=== PATIENT | female | born 1975 | race African-American/Black ===

== ENCOUNTER 2018-09-24 14:57 | Inpatient (IN) ==
[2018-09-24] MEDS ORDERED: DULCOLAX PR PRN (16:29)
[2018-09-24] MEDS ORDERED: MOTRIN PO PRN (16:29)
[2018-09-24] MEDS ORDERED: NICOTINE GUM BUCCAL PRN (16:29)
[2018-09-24] MEDS ORDERED: TUBERSOL ID ONE (16:29)
[2018-09-24] MEDS ORDERED: D5W 1,000 ML IV PRN (16:29)
[2018-09-24] MEDS ORDERED: ZOFRAN IV PRN (16:29)
[2018-09-24] MEDS ORDERED: PHENOBARBITAL IV PRN (16:29)
[2018-09-24] MEDS ORDERED: NICODERM PATCH TD PRN (16:29)
[2018-09-24] MEDS ORDERED: IMODIUM PO PRN ×2 (16:29)
[2018-09-24] MEDS ORDERED: ZOFRAN ODT PO PRN (16:29)
[2018-09-24] MEDS ORDERED: SENOKOT PO PRN (16:29)
[2018-09-24] MEDS ORDERED: ZOFRAN IM PRN (16:29)
[2018-09-24] MEDS ORDERED: MAALOX PLUS LIQUID PO PRN (16:29)
[2018-09-24 17:25] LABS: AMYLASE 63 U/L (20-200); LIPASE 28 U/L (13-60)
[2018-09-24] MEDS ORDERED: BENTYL PO PRN (17:38)
[2018-09-24] MEDS ORDERED: SINEMET 25/100 PO PRN (17:38)
[2018-09-24] MEDS: SUBOXONE 2 MG/0.5 MG FILM SL SCH (18:06)
[2018-09-24 18:51] LABS: UR AMPHETAMINES QUAL NONE DETECTED (NONE DETECT); UR BARBITUATES QUAL NONE DETECTED (NONE DETECT); UR BENZODIAZEPIN QUAL NONE DETECTED (NONE DETECT); UR CANNABINOIDS QUAL NONE DETECTED (NONE DETECT); UR COCAINE QUAL NONE DETECTED (NONE DETECT); UR METHADONE QUAL NONE DETECTED (NONE DETECT); UR METHAMPHETAMINE QUAL NONE DETECTED (NONE DETECT); UR OPIATES QUAL PRESUMPTIVE POSITIVE (NONE DETECT); UR OXYCODONE QUAL NONE DETECTED (NONE DETECT); UR PCP QUAL NONE DETECTED (NONE DETECT); UR PROPOXYPHENE QUAL NONE DETECTED (NONE DETECT); UR TCA QUAL NONE DETECTED (NONE DETECT)
[2018-09-24] MEDS: ATARAX PO PRN (21:59)
[2018-09-24] MEDS: SEROQUEL PO PRN (21:59)
[2018-09-25] MEDS: LIBRIUM PO PRN ×3 (02:05→21:16)
--- NOTE | 2018-09-25 04:59 | HISTORY AND PHYSICAL ---
CHIEF COMPLAINT: Nausea, vomiting. HISTORY OF PRESENT ILLNESS: Patient is a 43-year-old female who notes that she has been abusing opiates up to 10 pills a day. She has been having nausea, vomiting, abdominal pain, and myalgias since attempting to stop. SOCIAL HISTORY: Patient is . She works at [employer]. Lives at home in [place]. PAST MEDICAL HISTORY: Hypertension, high cholesterol, B12 deficiency, migraines, chronic anxiety, depression. MEDICATIONS: The patient takes B12 on a regular basis. Takes prescription for blood pressure but she is unsure of what. Takes Excedrin for her migraines. ALLERGIES: No known drug allergies. REVIEW OF SYSTEMS: CINA score 16 secondary to nausea, occasional vomiting, abdominal pain, visible sweating, mild tremors. Denies any fevers or chills. She denies any dysuria or urinary frequency. Denies hesitancy, polyuria. Denies constipation, melena, hematochezia. SUBSTANCE ABUSE HISTORY: The patient has never been in treatment facility in the past. States that substance abuse has caused financial and work problems. She states she is tired of the lifestyle and wants to get her life back before pain pills destroy it. She started Klonopin at age 32, currently uses occasionally. Started opiates at age 29, currently has been able take whatever she can get. Has been taking up to 10 pills a day. FAMILY HISTORY: Noncontributory. PHYSICAL EXAMINATION: VITAL SIGNS: Reviewed and stable. Patient is awake, alert, oriented. She is in no current respiratory distress. HEENT: Normocephalic, atraumatic. RAMAN. NECK: Supple. No JVD. CARDIOVASCULAR: Regular rate. No murmurs. CHEST: Clear and nonlabored. ABDOMEN: Soft, nondistended. EXTREMITIES: Moves all extremities. ASSESSMENT: 1. Nausea, vomiting. 2. Abdominal pain. 3. Myalgias. 4. Paresthesias. 5. Paroxysmal sweating. 6. Opiate abuse, withdrawal and stabilization. PLAN: We will admit patient to the hospital, place her on Suboxone, begin counseling, place her on symptomatic medications through [facility] protocol and we will follow. cc: Heriberto Mcarthur MD
[2018-09-25] MEDS: SUBOXONE 2 MG/0.5 MG FILM SL SCH ×2 (05:41→16:47)
[2018-09-25] MEDS: PROTONIX PO SCH ×2 (05:43→07:02)
[2018-09-25 07:04] LABS: URINE SOURCE CLEAN CATCH
[2018-09-25 07:05] LABS: BILIRUBIN URINE NEGATIVE (NEGATIVE); BLOOD URINE NEGATIVE (NEGATIVE); CLARITY CLEAR (CLEAR); COLOR YELLOW; GLUCOSE URINE NEGATIVE (NEGATIVE); KETONE URINE NEGATIVE (NEGATIVE); LEUKOCYTES URINE NEGATIVE (NEGATIVE); NITRITE URINE NEGATIVE (NEGATIVE); PROTEIN URINE TRACE mg/dL (NEGATIVE); SP GRAVITY URINE 1.015; UROBILINOGEN URINE NORMAL
[2018-09-25 07:08] LABS: URINE BACTERIA 4+ /HFP; URINE EPITHELIAL CELLS >10 /HPF (<10); URINE WBC 0-1 /HPF (<10)
[2018-09-25 07:09] LABS: URINE CAST NONE SEEN /LPF; URINE CRYSTAL NONE SEEN /HPF; URINE YEAST NONE SEEN /HPF
[2018-09-25] MEDS: FOLIC ACID PO SCH (08:15)
[2018-09-25] MEDS: VITAMIN B-1 PO SCH (08:15)
[2018-09-25] MEDS: THERA M PLUS PO SCH (08:15)
[2018-09-25] MEDS: SEROQUEL PO PRN (21:37)
[2018-09-26] MEDS: SUBOXONE 2 MG/0.5 MG FILM SL SCH ×2 (06:13→20:14)
[2018-09-26] MEDS: PROTONIX PO SCH (06:13)
[2018-09-26] MEDS: VITAMIN B-1 PO SCH (08:33)
[2018-09-26] MEDS: THERA M PLUS PO SCH (08:34)
[2018-09-26] MEDS: FOLIC ACID PO SCH (08:34)
[2018-09-26] MEDS ORDERED: SUBOXONE 2 MG/0.5 MG FILM SL ONE (08:58)
--- NOTE | 2018-09-26 09:42 | PROGRESS NOTE ---
DATE: 09/26/2018 SUBJECTIVE: She is feeling a little bit better, less nausea, less vomiting. Tremors are improved. Abdominal pain is improved. PHYSICAL EXAMINATION: Vital Signs: Reviewed and stable. General: She is awake and alert. She is in no current respiratory distress. HEENT: Normocephalic. Neck: Supple. Cardiovascular: Regular rate. Chest: Clear. Abdomen: Soft. Extremities: Moves all extremities. ASSESSMENT: 1. Nausea and vomiting. 2. Abdominal pain. 3. Myalgias. 4. Paresthesias. 5. Paroxysmal sweating. 6. Opiate abuse, withdrawal and stabilization. PLAN: We will continue counseling. Continue Suboxone and will follow. cc: Heriberto Mcarthur MD
[2018-09-26] MEDS: ATARAX PO PRN ×2 (13:22→20:13)
[2018-09-26] MEDS: SEROQUEL PO PRN (22:38)
[2018-09-26] MEDS: LIBRIUM PO PRN (22:45)
[2018-09-26] MEDS: TYLENOL PO PRN (22:45)
[2018-09-27] MEDS: PROTONIX PO SCH (06:31)
[2018-09-27] MEDS: SUBOXONE 2 MG/0.5 MG FILM SL SCH (09:26)
[2018-09-27] MEDS: FOLIC ACID PO SCH (09:26)
[2018-09-27] MEDS: THERA M PLUS PO SCH (09:26)
[2018-09-27] MEDS: VITAMIN B-1 PO SCH (09:26)
--- NOTE | 2018-09-27 09:50 | PROGRESS NOTE ---
DATE: 09/26/2018 SUBJECTIVE: Patient notes that she is feeling better, still having some muscle aches. Notes that she was feeling much better on the 4 mg. Once the dose was decreased, stated that she could feel that decrease almost immediately. PHYSICAL EXAMINATION: Vital Signs: Reviewed and stable. She is awake, alert, oriented. Temperature 98 degrees, pulse 98, respiratory rate 20, BP 130/71. General: Patient is in no current respiratory distress. HEENT: Normocephalic. Neck: Supple. Cardiovascular: Regular rate. No murmurs. Chest: Clear, nonlabored. Abdomen: Soft, nondistended, nontender. Extremities: Moves all extremities. Neurologic: No changes. ASSESSMENT: 1. Nausea and vomiting. 2. Abdominal pain. 3. Myalgias. 4. Paresthesias. 5. Paroxysmal sweating. 6. Opiate abuse, withdrawal and stabilization. PLAN: We will increase patient's Suboxone to 4 mg and will follow. Will increase that further if needed. Will continue counseling. Further orders as needed. cc: Heriberto Mcarthur MD
[2018-09-27] MEDS ORDERED: SUBOXONE 2 MG/0.5 MG FILM SL ONE (10:23)
[2018-09-27] MEDS: ATARAX PO PRN (17:13)
[2018-09-27] MEDS: SUBOXONE 8 MG/2 MG FILM SL SCH (21:02)
[2018-09-27] MEDS: DESYREL PO PRN (21:02)
[2018-09-27] MEDS: LIBRIUM PO PRN (21:20)
--- NOTE | 2018-09-27 23:31 | PROGRESS NOTE ---
DATE: 09/27/2018 SUBJECTIVE: Patient states that she thought she was getting better, but she is having increased muscle aches currently. States she is not sure the 4 mg is enough as she is having sweating episodes before it is time for her next dose. PHYSICAL EXAMINATION: Vital Signs: Reviewed. Patient is awake, alert. She is in no distress. Temperature 97 degrees, pulse 60s, blood pressure stable. General: Patient is awake, alert. She is very pleasant. She is in no distress although she does not appear to feel comfortable currently. HEENT: Normocephalic. Neck: Supple. Cardiovascular: Regular rate. No murmurs. Chest: Clear and unlabored. Abdomen: Soft, nondistended. Extremities: Moves all extremities. No edema. Neurologic: No changes. She is awake, alert, oriented. ASSESSMENT: 1. Nausea, vomiting. 2. Abdominal pain. 3. Myalgias. 4. Tremors, resolved. 5. Paresthesias. 6. Paroxysmal sweating, continues to be problematic. 7. Opiate abuse, withdrawal and stabilization. PLAN: At this point, we will increase her Suboxone to 8/2. Continue counseling and we will follow. cc: Heriberto Mcarthur MD
[2018-09-27] MEDS: SEROQUEL PO PRN (23:42)
[2018-09-28] MEDS: PROTONIX PO SCH (06:15)
[2018-09-28] MEDS: THERA M PLUS PO SCH (09:43)
[2018-09-28] MEDS: SUBOXONE 8 MG/2 MG FILM SL SCH ×2 (09:43→21:25)
[2018-09-28] MEDS: FOLIC ACID PO SCH (09:43)
[2018-09-28] MEDS: VITAMIN B-1 PO SCH (09:43)
[2018-09-28] MEDS: SEROQUEL PO PRN (21:25)
[2018-09-28] MEDS: DESYREL PO PRN (23:51)
[2018-09-28] MEDS: ROBAXIN PO PRN (23:51)
[2018-09-29] MEDS: PROTONIX PO SCH ×2 (05:56→08:04)
[2018-09-29 08:29] VITALS: BP 127/66
[2018-09-29] MEDS: ROBAXIN PO PRN (08:32)
[2018-09-29] MEDS: THERA M PLUS PO SCH (08:32)
[2018-09-29] MEDS: TYLENOL PO PRN (08:32)
[2018-09-29] MEDS: SUBOXONE 8 MG/2 MG FILM SL SCH (08:32)
[2018-09-29] MEDS: FOLIC ACID PO SCH (08:33)
[2018-09-29] MEDS: VITAMIN B-1 PO SCH (08:33)
== END 2018-09-29 10:12 | disposition home or self-care (01) | DRG 897 ==
LOC: P.DIRADM 14:57 → P.MEDSURG 15:04
PROVIDERS: ADMIT Family Medicine; ATTEND Family Medicine
CPT/HCPCS: 80104; 80301; 80305; 80307; 80320; 81001; 82055; 82150; 83690; 84703; A9270; G0431; G0434; G0477; G0480; G6040